=== PATIENT | male | born 1965 | race Caucasian/White ===

== ENCOUNTER → 2019-09-25 | Outpatient (CLI) | payer OTHER ==
[~2019-09-25] MED LIST: EMPA10TA PO; LEVO150T5 PO; LISI-167 PO; METF1000 PO
[2019-09-25 09:15] LABS: BASOPHILS # (AUTO) 0.07 x10^3/uL (0-0.1); BASOPHILS % (AUTO) 1 % (0-1); EOSINOPHILS % (AUTO) 2 % (1-7); LYMPHOCYTES % (AUTO) 22 % (22-44); MD NO; MEAN CORPUSCULAR HEMOGLOBIN 31.3 pg (27.5-34.5); MEAN CORPUSCULAR HGB CONC 34.3 g/dL (33.2-36.2); MEAN CORPUSCULAR VOLUME 91.2 fL (81-97); MEAN PLATELET VOLUME 9.7 fL (7.4-10.4); MONOCYTES # (AUTO) 0.46 x10^3/uL (0.2-0.8); MONOCYTES % (AUTO) 9 % (2-9); NEUTROPHILS # (AUTO) 3.65 x10^3/uL (1.8-6.8); NEUTROPHILS % (AUTO) 67 % (42-75); PLATELET COUNT 177 x10^3/uL (130-400); RED BLOOD COUNT 5.11 x10^6/uL (4.38-5.82)
[2019-09-25 09:23] LABS: ALANINE AMINOTRANSFERASE 33 U/L (12-78); ALBUMIN 3.9 g/dL (3.4-5.0); ANION GAP 9 mmol/L (5-15); CALCIUM 9.2 mg/dL (8.5-10.1); CHLORIDE 107 mmol/L (98-107)
[2019-09-25 09:27] LABS: ALKALINE PHOSPHATASE 106 U/L (45-117); BILIRUBIN,TOTAL 0.5 mg/dL (0.2-1.0); CREATININE 1.02 mg/dL (0.7-1.3); TOTAL PROTEIN 8.3 g/dL (6.4-8.2)
== END | disposition home or self-care (01) ==
LOC: STAR 08:02
PROVIDERS: ATTEND Surgery
DX: Z01.818 Encounter for other preprocedural examination (principal)
CPT/HCPCS: 36415; 80053; 82378; 83036; 85025; 93005

== ENCOUNTER 2019-10-04 08:06 | Inpatient (IN) | payer OTHER ==
[~2019-10-04] VITALS: Ht 180.3 cm; Wt 115.5 kg
[2019-10-04] MEDS ORDERED: LACTATED RINGERS 1,000 ML IV SCH (12:13)
[2019-10-04 12:14] VITALS: BP 129/91
[2019-10-04] MEDS ORDERED: FENTANYL PF 250 MCG/5ML ONE (13:59)
[2019-10-04] MEDS ORDERED: MIDAZOLAM 1 MG/ML, 2ML ONE (13:59)
[2019-10-04] MEDS ORDERED: MEPERIDINE/PF 25MG/ML,1ML IVPush PRN (16:00)
[2019-10-04] MEDS ORDERED: ONDANSETRON 2MG/ML, 2ML IV PRN ×2 (16:00→19:00)
[2019-10-04] MEDS ORDERED: ACETAMINOPHEN 325 MG TABLET PO PRN (16:00)
[2019-10-04] MEDS ORDERED: LABETALOL 5MG/ML, 20ML IV PRN (16:00)
[2019-10-04] MEDS ORDERED: LORazepam 2 MG/ML, 1ML IVPush PRN ×2 (16:00→19:00)
[2019-10-04] MEDS ORDERED: OXYcodone 5 MG/5 ML ORAL.SOL UDC PO PRN (16:00)
[2019-10-04] MEDS ORDERED: hydrALAzine 20 MG/ML, 1ML IV PRN (16:00)
[2019-10-04] MEDS ORDERED: SUGAMMADEX 200 MG/2 ML IVPush ONE (16:34)
[2019-10-04] MEDS ORDERED: PROPOFOL 10 MG/ML, 20ML ONE (16:34)
[2019-10-04] MEDS ORDERED: ESMOLOL 100 MG/10 ML ONE (16:34)
[2019-10-04] MEDS ORDERED: CEFOTETAN PMX 2GM/50ML 50 ML ONE (16:35)
[2019-10-04] MEDS ORDERED: DEXAMETHASONE 4 MG/ML, 1ML ONE ×2 (16:36)
[2019-10-04] MEDS ORDERED: ROCURONIUM 10MG/ML,5ML ONE (16:36)
[2019-10-04] MEDS ORDERED: LIDOCAINE-MPF 2% ,5ML ONE (16:36)
[2019-10-04] MEDS ORDERED: ONDANSETRON 2MG/ML, 2ML ONE (16:36)
[2019-10-04] MEDS: FENTANYL PF 100 MCG/2ML IV PRN ×2 (17:00→17:15)
[2019-10-04] MEDS ORDERED: OXYcodone 5 MG/5 ML ORAL.SOL UDC ONE (17:01)
[2019-10-04] MEDS ORDERED: FENTANYL PF 100 MCG/2ML ONE (17:04)
[2019-10-04] MEDS ORDERED: hydrALAzine 20 MG/ML, 1ML ONE (17:25)
[2019-10-04] MEDS ORDERED: HYDROmorphone 1 MG/ML, 1ML INJ ONE (17:25)
[2019-10-04] MEDS: HYDROmorphone 1 MG/ML, 1ML INJ IVPush PRN ×2 (17:29→17:51)
[2019-10-04] MEDS ORDERED: LORazepam 2 MG/ML, 1ML ONE (17:33)
[2019-10-04 18:30] VITALS: BP 148/64
[2019-10-04] MEDS ORDERED: DEXAMETHASONE 4 MG/ML, 1ML IVPush PRN (19:00)
[2019-10-04] MEDS ORDERED: SCOPOLAMINE 1MG PATCH TD PRN (19:00)
[2019-10-04] MEDS ORDERED: LORazepam 1MG TABLET PO PRN (19:00)
[2019-10-04] MEDS ORDERED: TRAZODONE 50MG TABLET PO PRN (19:00)
[2019-10-04] MEDS ORDERED: DIPHENHYDRAMINE 25 MG CAPSULE PO PRN (19:00)
[2019-10-04] MEDS ORDERED: HALOPERIDOL 5 MG/ML IVPush PRN (19:00)
[2019-10-04] MEDS ORDERED: OXYcodone IR 5MG TABLET PO PRN (19:00)
[2019-10-04] MEDS ORDERED: DIPHENHYDRAMINE 50 MG/ML, 1ML IVPush PRN (19:00)
[2019-10-04] MEDS ORDERED: CALCIUM CARBONATE 500 MG TAB.CHEW PO PRN (19:00)
[2019-10-04] MEDS: D5%-0.45NACL+KCL 20MEQ 1,000 ML IV SCH (21:25)
[2019-10-04] MEDS: ACETAMINOPHEN 500 MG TABLET PO SCH (21:26)
[2019-10-04] MEDS: INSULIN REGULAR, HUMAN 100 UNIT/ML 3ML VIAL LOW DOSE SS SQ-INSULIN SCH (23:50)
[2019-10-05 00:15] VITALS: BP 129/79
[2019-10-05] MEDS: ACETAMINOPHEN 500 MG TABLET PO SCH ×4 (03:16→21:28)
[2019-10-05 03:19] VITALS: BP 127/82
[2019-10-05 03:30] LABS: BASOPHILS # (AUTO) 0.01 x10^3/uL (0-0.1); BASOPHILS % (AUTO) 0 % (0-1); EOSINOPHILS % (AUTO) 0 % (1-7); LYMPHOCYTES # (AUTO) 0.48 x10^3/uL (1-3.4); LYMPHOCYTES % (AUTO) 5 % (22-44); MD NO; MEAN CORPUSCULAR HEMOGLOBIN 31.1 pg (27.5-34.5); MEAN CORPUSCULAR HGB CONC 33.5 g/dL (33.2-36.2); MEAN CORPUSCULAR VOLUME 92.6 fL (81-97); MONOCYTES # (AUTO) 0.36 x10^3/uL (0.2-0.8); MONOCYTES % (AUTO) 4 % (2-9); NEUTROPHILS # (AUTO) 9.34 x10^3/uL (1.8-6.8); NEUTROPHILS % (AUTO) 92 % (42-75); PLATELET COUNT 188 x10^3/uL (130-400); RED BLOOD COUNT 5.05 x10^6/uL (4.38-5.82)
[2019-10-05 03:39] LABS: ANION GAP 5 mmol/L (5-15); CALCIUM 8.9 mg/dL (8.5-10.1); CHLORIDE 105 mmol/L (98-107); CREATININE 0.96 mg/dL (0.7-1.3)
[2019-10-05] MEDS: LEVOTHYROXINE 150 MCG TABLET PO SCH (06:26)
[2019-10-05 08:15] VITALS: BP 135/78
[2019-10-05] MEDS: INSULIN REGULAR, HUMAN 100 UNIT/ML 3ML VIAL LOW DOSE SS SQ-INSULIN SCH ×4 (08:54→21:00)
[2019-10-05] MEDS: metFORMIN 500 MG TABLET PO SCH ×2 (08:54→16:45)
[2019-10-05] MEDS: LISINOPRIL 10 MG TABLET PO SCH (08:55)
[2019-10-05] MEDS: ENOXAPARIN 40 MG/0.4 ML SQ SCH (08:55)
[2019-10-05] MEDS: EMPAGLIFLOZIN 10 MG HOMEMEDPO SCH (08:56)
[2019-10-05] MEDS: D5%-0.45NACL+KCL 20MEQ 1,000 ML IV SCH ×2 (09:02→23:36)
[2019-10-05 12:40] VITALS: BP 102/65
[2019-10-05 21:23] VITALS: BP 119/77
[2019-10-06] MEDS: ACETAMINOPHEN 500 MG TABLET PO SCH ×3 (03:45→15:29)
[2019-10-06] MEDS: LEVOTHYROXINE 150 MCG TABLET PO SCH (03:47)
[2019-10-06 03:50] VITALS: BP 116/77
[2019-10-06] MEDS: INSULIN REGULAR, HUMAN 100 UNIT/ML 3ML VIAL LOW DOSE SS SQ-INSULIN SCH ×2 (06:32→10:55)
[2019-10-06 06:57] LABS: BASOPHILS # (AUTO) 0.07 x10^3/uL (0-0.1); BASOPHILS % (AUTO) 1 % (0-1); EOSINOPHILS # (AUTO) 0.07 x10^3/uL (0-0.4); EOSINOPHILS % (AUTO) 1 % (1-7); LYMPHOCYTES # (AUTO) 1.23 x10^3/uL (1-3.4); LYMPHOCYTES % (AUTO) 14 % (22-44); MD NO; MEAN CORPUSCULAR HEMOGLOBIN 31.3 pg (27.5-34.5); MEAN CORPUSCULAR VOLUME 92.1 fL (81-97); MONOCYTES # (AUTO) 0.75 x10^3/uL (0.2-0.8); MONOCYTES % (AUTO) 8 % (2-9); NEUTROPHILS % (AUTO) 77 % (42-75); PLATELET COUNT 167 x10^3/uL (130-400); RED BLOOD COUNT 4.78 x10^6/uL (4.38-5.82); RED CELL DISTRIBUTION WIDTH 14.4 % (9.4-14.8)
[2019-10-06 08:44] VITALS: BP 118/77
[2019-10-06] MEDS: metFORMIN 500 MG TABLET PO SCH (08:51)
[2019-10-06] MEDS: EMPAGLIFLOZIN 10 MG HOMEMEDPO SCH (08:51)
[2019-10-06] MEDS: ENOXAPARIN 40 MG/0.4 ML SQ SCH (08:51)
[2019-10-06] MEDS: LISINOPRIL 10 MG TABLET PO SCH (08:51)
[2019-10-06] MEDS: D5%-0.45NACL+KCL 20MEQ 1,000 ML IV SCH (10:55)
[2019-10-06 13:19] VITALS: BP 108/73
[2019-10-06] MEDS ORDERED: OXYC-302 PO (14:36)
== END 2019-10-06 15:48 | disposition home or self-care (01) | DRG 331 ==
LOC: ORIP 11:35 → 3WST 18:24 → DCLOUNGE 10-06 15:48
PROVIDERS: ADMIT Surgery; ATTEND Surgery
PROC: 8E0W4CZ Robotic Assisted Procedure of Trunk Region, Percutaneous Endoscopic Approach (ICD-10-PCS; 2019-10-04)
PROC: 0DTF4ZZ Resection of Right Large Intestine, Percutaneous Endoscopic Approach (ICD-10-PCS; principal; 2019-10-04 13:30)
DX: D37.4 Neoplasm of uncertain behavior of colon (principal); J45.909 Unspecified asthma, uncomplicated; E11.9 Type 2 diabetes mellitus without complications; I10 Essential (primary) hypertension; E03.9 Hypothyroidism, unspecified; K76.89 Other specified diseases of liver; Z83.3 Family history of diabetes mellitus; Z82.3 Family history of stroke
CPT/HCPCS: 36415; J3490; 80048; 82962; 85025; 86850; 86900; 88309; G0378; J1100; J1170; J1650; J1815; J2250; J2405; J2704; J3010; J0360; J2060; J3480; J7120